=== PATIENT | female | born 2000 | race Caucasian/White ===

== ENCOUNTER 2022-12-29 10:40 | Emergency (ER) | payer MEDICAID, SELFPAY ==
[2022-12-29] MEDS ORDERED: Ibuprofen 800 MG TAB ONE (11:04)
== END 2022-12-29 11:32 | disposition home or self-care (01) ==
LOC: MADERS 10:40
DX: S93.402A Sprain of unspecified ligament of left ankle, initial encounter (principal); W10.9XXA Fall (on) (from) unspecified stairs and steps, initial encounter